=== PATIENT | female | born 1995 | race Caucasian/White ===

== ENCOUNTER → 2018-06-08 14:01 | Outpatient (CLI) | payer MEDICAID, SELFPAY | PROVIDERS: Family Provider Family Medicine; PCP Family Medicine; Visit Provider Family Medicine | DX: R55 Syncope and collapse (principal) | CPT/HCPCS: 93225; 93226 ==

== ENCOUNTER 2018-07-02 13:33 | Outpatient (RCR) | payer MEDICAID, SELFPAY ==
[2018-07-02 13:53] VITALS: BP 116/70; PULSE 79; RESP 16; TEMP 36.7; BMI 19.7
--- NOTE | 2018-07-02 16:16 | NURSING ---
This nurse called ins at 1517 and spoke Pattie from [facility], when asked if hyperbarics would be approved and paid by them for a diagnosis that does not meet CMS guidelines she states, it will not be covvered by us in the event it does not follow CMS. This nurse called again at 1555 and spoke with a pre-affiliate marketing specialist, Qiana, to inquire if there is any way to have an off-label diagnosis approved. Asked if we were able to provide the medical necessity and failure/ lack thereof other treatments to help the patients if there was a possibility, to which Qiana states, the likelihood of approval is slim. Qiana also states that if we would like attempt to get approval that we need to fax in the [facility] prior auth form along with medical necessity and clinicals. They are adamant about following CMS guidelines. This nurse, along the side the CM, will submit the requested information to try to get an approval.
--- NOTE | 2018-07-02 18:18 | PCM.CONHBO ---
(1) Intracranial arachnoid cyst Status: Chronic Current Visit: Yes Code(s): G93.0 - Cerebral cysts (2) Dizziness, nonspecific Status: Chronic Current Visit: Yes Code(s): R42 - Dizziness and giddiness (3) Weakness Status: Chronic Current Visit: Yes Code(s): R53.1 - Weakness (4) Balance problem Status: Chronic Current Visit: Yes Code(s): R26.89 - Other abnormalities of gait and mobility History of Present Illness Presenting Chief Complaint: Arachnoid cyst, dizziness, balance problems, weakness The patient is a 23 year old F who [facility] the possibility of initiating hyperbaric oxygen therapy for treatment of symptoms of dizziness, balance problems and weakness possibly related to an arachnoid cyst of her brain. Julienne presents for evaluation for HBO treatment that was recommended to her from another provider for dizziness, balance problems and weakness which she has had for several years. She has seen multiple specialists for evaluation to identify the cause of her symptoms and was found to have an arachnoid cyst of her brain which may be the source of her symptoms. She has seen neurosurgery who did not feel that she was a surgical candidate at this time due to the size and location of the cyst, she has seen neurology, ENT, and endocrinology and has not been found to have any other medical reasons for her complaints. She also has tried multiple treatments, including oral medications, physical therapy and herbal and alternative oral supplements which have not improved her symptoms. She saw a chiropractor that performed a brain wave test in April which showed that her brain waves were abnormal corresponding to certain areas in her brain such as the frontal lobe and cerebellum and recommended treatment with hyperbaric oxygen but did not accept her insurance so she asked for a referral to [facility] for evaluation for hyperbaric oxygen treatment. She does not have any open wounds, does not have any evidence of diabetes based on interview and records currently available and she has not undergone any radiation treatments in her lifetime so far. Medications - Mind trac (herbal supplement), Probiotic, Ad HS (adrenal cortisol supplement), Beta ICP (liver and bile flow supplement), Biofreeze, Ease Gel topical pain treatment Past Medical History Chronic Problems Intracranial arachnoid cyst (Chronic) Dizziness, nonspecific (Chronic) Weakness (Chronic) Balance problem (Chronic) Allergies/Adverse Reactions: Allergies etodolac Adverse Reaction (Verified 08/29/14 11:11) Other Home Medications: Ambulatory Orders Medication Instructions Recorded Oxycodone HCl/Acetaminophen 1 - 2 tablet PO Q4H PRN PRN #20 08/29/14 [Percocet 5/325] tablet Maternal Family History: No pertinent history Paternal Family History: No pertinent history Lives: With Family Smoking Status: Never smoker Tobacco Use: Non-smoker Alcohol: None Drugs: None Review of Systems Constitutional: Reports: Malaise, Weakness, Fatigue. Denies: Anorexia, Chills, Fever, Night Sweats, Weight Change Eyes: Denies: Blurred vision, Double vision, Drainage, Vision Change HEENT: Reports: Head Aches. Denies: Difficulty Hearing, Difficulty Swallowing, Dysphasia, Ear Pain, Eye Pain, Hard of Hearing, Hearing Changes, Nasal bleeding, Nasal Congestion, Post Nasal Drip, Sinus Congestion, Sinus Drainage, Sore Throat, Visual Changes Cardiovascular: Reports: Chest Pain, Chest Tightness, Light Headedness, Palpitations. Denies: Claudication, Edema, Heaviness, Orthopnea, Syncope Respiratory: Denies: Cough, Shortness of Breath, Shortness of breath upon exertion, Sputum production, Wheezing Gastrointestinal: Denies: Abdominal Pain, Constipation, Diarrhea, Dyspepsia, Hematochezia, Nausea, Melena, Vomiting Genitourinary: Denies: Dysuria, Frequency, Hematuria, Incontinence, Retention, Urgency Gynecological: Denies: Breast symptoms, Vaginal discharge, Vaginal itching Musculoskeletal: Reports: Joint stiffness, Muscle pain. Denies: Back Pain, Joint Pain Skin: Denies: Skin Changes, Wounds Neurological: Reports: Balance problems, Headaches, Numbness. Denies: Blurred vision, Double vision, Change in Speech, Slurred speech, Confusion, Difficulty swallowing, Focal weakness, Incoordination, Tingling, Tremor, Seizures Psychiatric: Denies: Anxiety, Depression, Homicidal Ideations, Suicidal Ideations Endocrine: Denies: Change in Body Habitus, Heat/ Cold Intolerance, Polydipsia, Polyuria, Hx of Irradiation, Hx of Thyroiditis Hematologic/ Lymphatic: Denies: Adenopathy, Anemia, Easy Bruising, Easy Bleeding, Petechiae, Purpura - Physical Exam Vital Signs Temp Pulse Resp BP 98.0 F 79 16 116/70 07/02/18 13:53 07/02/18 13:53 07/02/18 13:53 07/02/18 13:53 General: Alert, Oriented x3, Cooperative, No apparent distress HEENT: Atraumatic, PERRLA, EOMI, Normocephalic Oral: Moist Mucosa Neck: Supple, Negative Carotid Bruits, Negative Hepatojugular Reflux, No Nodes, No Nuchal Rigidity, Trachea Midline, Thyroid Normal Size and Texture Lungs: Clear to auscultation, Normal air movement, No rhonchi, No wheeze, No rales Cardiovascular: Regular rate, Regular Rhythm, No murmurs, No rub noted, No Gallop Abdomen: Soft, Non Tender, Non-Distended, No Hepato-splenomegaly Extremities: No clubbing, No cyanosis, No edema, Capillary Refill Less than 3 Seconds, No Calf Tenderness, Peripheral Pulses Normal Skin: No rashes Wound Measurements and Assessment WC - Nurse 2 - General Ulcer CM Notes Start: 07/02/18 13:53 Freq: Status: Active Protocol: Activity Type Activity Date Activity User E-Sign Co-Sign Detail Recorded Client Recorded Date Recorded By Document 07/02/18 14:40 [id number] 07/02/18 14:55 07/02/18 14:40 Pain Scale: 0-10 Numeric [Pain] -Is Patient Pain Free? Yes Musculoskeletal: No Tenderness to Palpation of Joints or Extremities, No Muscle Wasting Neurological: Cranial nerves II-XII grossly intact, Deep Tendon Reflexes 2+/4 and Symmetrical, Neuro grossly intact, Motor Exam 5/5 strength throughout, Unsteady Gait, Muscle tone normal, Coordination normal, Gait narrow based and stable, - - sensation decreased right upper and lower extremities without any dermatomal pattern Psych/Mental Status: Appropriate, Flat Affect Assessment/Plan Active Problems Intracranial arachnoid cyst (Chronic) Dizziness, nonspecific (Chronic) Weakness (Chronic) Balance problem (Chronic) JULIENNE TEJEDA is a candidate for hyperbaric oxygen therapy. Hyperbaric Oxygen Therapy may be helpful in the treatment of this patient's presenting problem. This patient has sufficient physiologic and psychological stamina to undergo the rigors of hyperbaric oxygen therapy. She is aware that treatment for arachnoid cyst is an off-label use of hyperbaric oxygen treatment and there is no specific treatment guidelines or recommendations for this medical problem and there is not sufficient evidence available to support treatment but has exhausted other medical and alternative treatments for her symptoms and arachnoid cyst. As such, I recommend the following: Hyperbaric Oxygen Treatments at 2.0 LIANNA in 100% Oxygen for 90 minutes per treatment, for 40 treatments. I have discussed the possible benefits of hyperbaric oxygen therapy with this patient. I have also presented and described the risks, including: air gas embolism, pneumothorax, central nervous system and pulmonary oxygen toxicity, flash pulmonary edema, hypoglycemia, reversible visual refractive changes, ear and sinus nadine-trauma, and confinement anxiety. The patient has verbalized understanding of these risks, and is still wanting to undergo hyperbaric oxygen therapy. The patient understands the significant time and transportation commitment involved in daily treatments of up to two hours duration and has stated that they are willing to commit to this therapy. - HBOT Diagnosis - - arachnoid cyst, dizziness, weakness, balance problems At this time, there is only Holter monitor results which are normal and brain wave scan from chiropractor which showed abnormal increased function of frontal and cerebellar regions. Neurology consult and notes reviewed but imaging of arachnoid cyst is not available at this time. Records of imaging and previous lab testing requested and will be reviewed when available.
== END 2018-07-04 23:59 ==
LOC: WC 13:33
PROVIDERS: Family Provider Family Medicine; PCP Family Medicine; Visit Provider Family Medicine
DX: G93.0 Cerebral cysts (principal); R94.09 Abnormal results of other function studies of central nervous system
CPT/HCPCS: 99202; G0463

== ENCOUNTER → 2018-09-23 13:17 | Outpatient (CLI) | payer MEDICAID, SELFPAY ==
--- NOTE | 2018-09-23 13:20 | CT_ITS ---
STUDY: CT BRAIN WITHOUT CONTRAST REASON FOR EXAM: Female, 23 years old. History of cerebral cysts. Follow-up to check for bony involvement. RADIATION DOSAGE (If Supplied By Facility): CTDIvol = ( 44.99 ) mGy, DLP = ( 762.36 ) mGycm TECHNIQUE: Transaxial CT imaging of the brain was performed without administration of intravenous contrast material. Individualized dose optimization techniques were used for this CT. COMPARISON: None. FINDINGS: Normal soft tissue structures. Normal calvarium. CSF lucency in the anterior left temporal fossa consistent with an arachnoid cyst versus hypoplasia or encephalomalacia of the anterior left temporal lobe. There is asymmetry of the ventricles consistent with an anatomic variant. Normal white matter tracts of the cerebral hemispheres. Normal basal ganglia and thalami. Normal brainstem. Normal cerebellum. There is no intracranial hemorrhage. There are no findings of an acute ischemic infarction. Normal visualized paranasal sinuses. CT/Brain/Head without Contrast IMPRESSION: Probable arachnoid cyst in the anterior left temporal fossa. No acute intracranial pathology. The adjacent osseous cranial structures are unremarkable. Electronically Signed: Jr Shabazz MD at 14:10 EST , Service support ,
== END ==
PROVIDERS: Family Provider Family Medicine; PCP Family Medicine
DX: G93.0 Cerebral cysts (principal)
CPT/HCPCS: 70450

== ENCOUNTER → 2024-03-29 | Outpatient (CLI) | payer MEDICAID, SELFPAY ==
[2024-03-29 12:32] LABS: Absolute Lymphocyte Count 1.61 X10^3/uL (0.83-4.51); Basophil# 0.04 X10^3/uL; Basophil% 0.8 % (0-1); Eosinophil# 0.09 X10^3/uL; Eosinophils% 1.7 % (0-5); Hematocrit 42.6 % (37-47); Hemoglobin 14.2 g/dL (12.0-15.0); Lymphocyte # 1.61 X10^3/ul (0.83-4.51); Lymphocyte % 31.3 % (19-41); Mean Corp Hgb Conc 33.3 g/dL (32-36); Mean Corpuscular Hgb 30.1 pg (27.0-32.0); Mean Corpuscular Volume 90.4 fL (81-99); Mean Platelet Vol. 10.3 fl (6.2-12.0); Monocyte# 0.45 X10^3/uL; Monocyte% 8.7 % (0-10); NRBC Flagged by Analyzer 0 % (0-5); Neutrophil # 2.95 X10^3/uL (2.7-7.7); Neutrophil % 57.3 % (47-70); Platelet Count 241 K/mm3 (150-450); RBC Distribution Width CV 12.5 % (11.6-14.6); RBC Distribution Width SD 41.8 fl (35.1-43.9); Red Blood Count 4.71 M/mm3 (4.2-5.4); White Blood Count 5.2 K/mm3 (4.4-11.0)
[2024-03-29 12:50] LABS: ALB/GLOB Ratio 1.2 RATIO (0.9-2.4); AST(SGOT) 9 U/L (15-37); Alanine Aminotransfer ALT/SGPT 16 U/L (13-56); Albumin, Serum 4.1 g/dL (3.2-5.0); Alkaline Phosphatase 33 U/L (45-117); Anion Gap 7 (5-15); BUN 9 mg/dL (7-18); BUN/Creat Ratio 12.5 RATIO (10-20); Calcium,Total 9.1 mg/dL (8.5-10.1); Chloride 102 mmol/L (98-107); Cholesterol 225 mg/dL (200); Creatinine, Serum 0.72 mg/dL (0.55-1.02); EST Glomerular Filtration Rate 101 mL/min (>60); Est Glom Filt Rate - Afr Amer 122 mL/min (>60); Globulin 3.4 g/dL (2.2-4.2); Glucose 86 mg/dL (74-106); High Density Lipoprotein 69 mg/dL; Potassium 3.7 mmol/L (3.5-5.1); Protein, Total 7.5 g/dL (6.4-8.2); Sodium Level 136 mmol/L (136-145); Triglycerides 61 mg/dL; Very Low Density Lipoprotein 12 mg/dL (5-40)
== END | disposition home or self-care (01) ==
LOC: MTLAB 09:55
PROVIDERS: PCP Nurse Practitioner Family; Referring Provider Nurse Practitioner Family; Visit Provider Nurse Practitioner Family
DX: Z00.01 Encounter for general adult medical examination with abnormal findings (principal)
CPT/HCPCS: 36415; 80053; 80061; 85025

== ENCOUNTER → 2025-05-19 | Outpatient (CLI) | payer MEDICAID, SELFPAY ==
[2025-05-19 17:39] LABS: Hematocrit 35.0 % (37-47); Hemoglobin 12.0 g/dL (12.0-15.0); Immature Granulocytes Count 0.060 X10^3/uL (0.0-0.0); Mean Corp Hgb Conc 34.3 g/dL (32-36); Mean Corpuscular Volume 89.1 fL (81-99); Mean Platelet Vol. 10.5 fl (6.2-12.0); NRBC Flagged by Analyzer 0 % (0-5); Platelet Count 171 K/mm3 (150-450); RBC Distribution Width CV 12.7 % (11.6-14.6); RBC Distribution Width SD 41.6 fl (35.1-43.9); Red Blood Count 3.93 M/mm3 (4.2-5.4); White Blood Count 9.3 K/mm3 (4.4-11.0)
[2025-05-19 18:02] LABS: AST(SGOT) 26 U/L (<=31); Alanine Aminotransfer ALT/SGPT 25 U/L (<=34); Albumin, Serum 3.7 g/dL (3.5-5.0); Alkaline Phosphatase 58 U/L (35-104); Anion Gap 14 (5-15); BUN 8 mg/dL (4-19); BUN/Creat Ratio 14.1 RATIO (10-20); Calcium,Total 9.4 mg/dL (7.6-11.0); Carbon Dioxide 23.1 mmol/L (21.0-32.0); Chloride 100 mmol/L (98-108); Cholesterol 149 mg/dL (<=200); Globulin 3.2 g/dL (2.2-4.2); Glucose 105 mg/dL (70-99); Low Density Lipoprotein Calc. 75 mg/dL; Potassium 3.3 mmol/L (3.3-5.1); Triglycerides 223 mg/dL; Very Low Density Lipoprotein 45 mg/dL (5-40); cholesterol:hdl ratio screen 5.14
== END | disposition home or self-care (01) ==
LOC: BFHLAB 15:50
PROVIDERS: PCP Nurse Practitioner Family; Referring Provider Nurse Practitioner Family; Visit Provider Nurse Practitioner Family
DX: Z00.01 Encounter for general adult medical examination with abnormal findings (principal); R73.01 Impaired fasting glucose
CPT/HCPCS: 36415; 80053; 80061; 83036; 85025